=== PATIENT | female | born 1935 | race Caucasian/White ===

== ENCOUNTER 2017-01-10 13:52 | Emergency (ER) | payer OTHER ==
[2017-01-10 14:03] VITALS: BP 193/101; PULSE 92; RESP 18; TEMP 97.5; O2SAT 95
--- NOTE | 2017-01-10 14:53 | EDPHY ---
H & P Stated Complaint: Fall, Shoulder Pain HPI/ROS: HPI CHIEF COMPLAINT: Fall, left shoulder pain, right femur pain HISTORY OF PRESENT ILLNESS: The patient is a very pleasant 81-year-old female, no significant medical history, does not take any daily medications she presents to the emergency room left lateral shoulder pain, right mid femur pain after she rolled out of bed on Saturday. No LOC. Denies headache, neck pain. She also endorses right lateral rib pain. No shortness of breath. No pleuritic pain. Past Medical History: No significant medical history does not take any daily medications Past Surgical History: Denies any recent surgical history remote history of tonsillectomy, Social History: Denies drugs alcohol tobacco products Family History: Noncontributory ROS REVIEW OF SYSTEMS: A comprehensive 10 point review of systems is otherwise negative aside from elements mentioned in the history of present illness. Exam Constitutional triage nursing summary reviewed, vital signs reviewed, awake/ alert. Eyes normal conjunctivae and sclera, EOMI, PERRLA. HENT normal inspection, atraumatic, moist mucus membranes, no epistaxis, neck supple/ no meningismus, no raccoon eyes. Respiratory clear to auscultation bilaterally, normal breath sounds, no respiratory distress, no wheezing. Cardiovascular rate normal, regular rhythm, no murmur, no edema, distal pulses normal. Gastrointestinal soft, non-tender, no rebound, no guarding, normal bowel sounds, no distension, no pulsatile mass. Genitourinary no CVA tenderness. Musculoskeletal tender palpation lateral left shoulder, tender palpation right lateral ribs, tender palpation mid femur no ecchymosis no signs of swelling no obvious signs of deformity or significant trauma, note on her left shoulder full range of motion, diversion lateral aspect, otherwise unremarkable, neurovascular intact distally no midline vertebral tenderness, full range of motion, no calf swelling, no tenderness of extremities, no meningismus, good pulses, neurovascularly intact. Skin pink, warm, & dry, no rash, skin atraumatic. Neurologic awake, alert and oriented x 3, AAOx3, moves all 4 extremities equally, motor intact, sensory intact, CN II-XII intact, normal cerebellar, normal vision, normal speech. Psychiatric normal mood/affect. Heme/Lymph/Immune no lymphadenopathy. Differential Diagnosis: Includes but is not limited to in a particular order multiple contusions, shoulder contusion, shoulder fracture, femur contusion, soft tissue injury, femur fracture, rib fracture, rib contusion Medical Decision Making: plan for this patient she declined pain medicine here in emergency room she would like a chest x-ray two view with rib series, right- sided, right femur, left shoulder Re-evaluation: ED x-ray chest rib series right-sided ribs: possible small lateral fracture. Image interpreted myself. No pneumonia. No pneumothorax. ED x-ray right femur: negative for acute abnormality. Image interpreted myself. ED x-ray left shoulder: negative for acute fracture. Image interpreted myself. Source: Patient - Personal History Current Tetanus Diphtheria and Acellular Pertussis (TDAP): Yes Tetanus Vaccine Date: within 10 years - Medical/Surgical History Hx Asthma: No Hx Chronic Respiratory Disease: No Hx Diabetes: No Hx Cardiac Disease: No Hx Renal Disease: No Hx Cirrhosis: No Hx Alcoholism: No Hx HIV/AIDS: No Hx Splenectomy or Spleen Trauma: No Other PMH: D&C T&A arthritis - Social History Smoking Status: Former smoker Constitutional: Initial Vital Signs Temperature (C) 36.4 C 01/10/17 13:59 Heart Rate 92 01/10/17 13:59 Respiratory Rate 18 01/10/17 13:59 Blood Pressure 193/101 H 01/10/17 13:59 O2 Sat (%) 95 01/10/17 13:59 O2 Delivery Mode Room Air Allergies/Adverse Reactions: No Known Allergies Allergy (Verified 01/27/16 17:38) Home Medications: Medication Instructions Recorded Ciprofloxacin [Cipro] 500 mg PO BID #14 tab 01/27/16 Medical Decision Making - Diagnostics Imaging: Imaging Impressions Femur X-Ray 01/10/17 14:59 Impression: Nothing acute identified. 2. Right Femur, 4 views History: Fall out of bed today, pain Findings: No fracture is identified. Impression: Negative 3. Chest and Right Ribs (3 views ) History: Pain post trauma, fall out of bed today, pain Findings: PA chest - No evidence of pneumothorax, pleural effusion or pulmonary contusion. The mediastinum is not widened. There is a large hiatal hernia behind the enlarged heart. There are possibly acute nondisplaced right lateral fifth and anterolateral sixth rib fractures. There is a prominent thoracic scoliosis concave to the left. There is atherosclerotic calcification of the aortic arch. Right ribs, 2 views- No fracture is identified Impression: 1. Possibly 2 nondisplaced right rib fractures. Shoulder X-Ray 01/10/17 14:59 Impression: Nothing acute identified. 2. Right Femur, 4 views History: Fall out of bed today, pain Findings: No fracture is identified. Impression: Negative 3. Chest and Right Ribs (3 views ) History: Pain post trauma, fall out of bed today, pain Findings: PA chest - No evidence of pneumothorax, pleural effusion or pulmonary contusion. The mediastinum is not widened. There is a large hiatal hernia behind the enlarged heart. There are possibly acute nondisplaced right lateral fifth and anterolateral sixth rib fractures. There is a prominent thoracic scoliosis concave to the left. There is atherosclerotic calcification of the aortic arch. Right ribs, 2 views- No fracture is identified Impression: 1. Possibly 2 nondisplaced right rib fractures. Ribs w/Chest X-Ray 01/10/17 15:07 Impression: Nothing acute identified. 2. Right Femur, 4 views History: Fall out of bed today, pain Findings: No fracture is identified. Impression: Negative 3. Chest and Right Ribs (3 views ) History: Pain post trauma, fall out of bed today, pain Findings: PA chest - No evidence of pneumothorax, pleural effusion or pulmonary contusion. The mediastinum is not widened. There is a large hiatal hernia behind the enlarged heart. There are possibly acute nondisplaced right lateral fifth and anterolateral sixth rib fractures. There is a prominent thoracic scoliosis concave to the left. There is atherosclerotic calcification of the aortic arch. Right ribs, 2 views- No fracture is identified Impression: 1. Possibly 2 nondisplaced right rib fractures. Departure - Departure Disposition: Home, Routine, Self-Care Clinical Impression: Multiple contusions Rib fracture Qualifiers: Encounter type: initial encounter Rib fracture type: multiple ribs Fracture type: closed Laterality: right Qualified Code(s): S22.41XA - Multiple fractures of ribs, right side, initial encounter for closed fracture Condition: Good Instructions: Contusion in Adults (ED), Rib Fracture (ED) Additional Instructions: 1. Return emergency room if you have worsening pain questions or concerns. Referrals: Pramod Serrano MD [Primary Care Provider] - As per Instructions
== END 2017-01-10 16:30 | disposition home or self-care (01) ==
DX: S22.41XA Multiple fractures of ribs, right side, initial encounter for closed fracture (principal); T14.8 Other injury of unspecified body region; Z87.891 Personal history of nicotine dependence; W06.XXXA Fall from bed, initial encounter

== ENCOUNTER 2017-04-22 16:32 | Emergency (ER) | payer OTHER ==
[2017-04-22 16:40] VITALS: BP 118/84; PULSE 104; RESP 18; TEMP 97.5; O2SAT 92
--- NOTE | 2017-04-22 18:48 | EDPHY ---
H & P Stated Complaint: R abd pain, ?blood in urine,no injury, noted this morning Time Seen by Provider: 04/22/17 18:40 HPI/ROS: CHIEF COMPLAINT: Hematuria HISTORY OF PRESENT ILLNESS: The patient is an 81-year-old female who comes to the emergency department complaining of dysuria, hematuria and right inguinal pain. Her symptoms began today. She states that it is similar to urinary tract infection she has had in the past. No fever. No flank pain. No nausea vomiting. REVIEW OF SYSTEMS: Constitutional: denies: chills, fever, recent illness, recent injury EENTM: denies: blurred vision, double vision, nose congestion Respiratory: denies: cough, shortness of breath Cardiac: denies: chest pain, irregular heart rate, lightheadedness, palpitations Gastrointestinal/Abdominal: denies: abdominal pain, diarrhea, nausea, vomiting, blood streaked stools Genitourinary: See HPI Musculoskeletal: denies: joint pain, muscle pain Skin: denies: lesions, rash, jaundice, bruising Neurological: denies: headache, numbness, paresthesia, tingling, dizziness, weakness Hematologic/Lymphatic: denies: blood clots, easy bleeding, easy bruising Immunologic/allergic: denies: HIV/AIDS, transplant EXAM: GENERAL: Well-appearing, well-nourished and in no acute distress. HEAD: Atraumatic, normocephalic. EYES: Pupils equal round and reactive to light, extraocular movements intact, sclera anicteric, conjunctiva are normal. ENT: TMs normal, nares patent, oropharynx clear without exudates. Moist mucous membranes. NECK: Normal range of motion, supple without lymphadenopathy or JVD. LUNGS: Breath sounds clear to auscultation bilaterally and equal. No wheezes rales or rhonchi. HEART: Regular rate and rhythm without murmurs, rubs or gallops. ABDOMEN: Soft, nontender, normoactive bowel sounds. No guarding, no rebound. No masses appreciated. BACK: No CVA tenderness, no spinal tenderness, step-offs or deformities EXTREMITIES: Normal range of motion, no pitting or edema. No clubbing or cyanosis. NEUROLOGICAL: Cranial nerves II through XII grossly intact. Normal speech, normal gait. 5/5 strength, normal movement in all extremities, normal sensation PSYCH: Normal mood, normal affect. SKIN: Warm, dry, normal turgor, no visible rashes or lesions. Source: Patient Exam Limitations: No limitations - Personal History Current Tetanus Diphtheria and Acellular Pertussis (TDAP): Yes Tetanus Vaccine Date: within 10 years - Medical/Surgical History Hx Asthma: No Hx Chronic Respiratory Disease: No Hx Diabetes: No Hx Cardiac Disease: No Hx Renal Disease: No Hx Cirrhosis: No Hx Alcoholism: No Hx HIV/AIDS: No Hx Splenectomy or Spleen Trauma: No Other PMH: D&C T&A arthritis - Family History Significant Family History: No pertinent family hx - Social History Smoking Status: Former smoker Alcohol Use: Sober Drug Use: None Constitutional: Initial Vital Signs Temperature (C) 36.4 C 04/22/17 16:36 Heart Rate 104 H 04/22/17 16:36 Respiratory Rate 18 04/22/17 16:36 Blood Pressure 118/84 H 04/22/17 16:36 O2 Sat (%) 92 04/22/17 16:36 O2 Delivery Mode Room Air Allergies/Adverse Reactions: No Known Allergies Allergy (Verified 04/22/17 16:33) Home Medications: Medication Instructions Recorded Cephalexin [Keflex] 500 mg PO TID #21 cap 04/22/17 Medical Decision Making ED Course/Re-evaluation: 7:20 p.m. the patient's urinalysis is positive. I will start her on Keflex. She declines further workup or testing. She is well appearing. She is afebrile. We discussed indications for returning. Differential Diagnosis: Partial list of the Differential diagnosis considered include but were not limited to; urinary tract infection, kidney stone and although unlikely based on the history and physical exam, I also considered appendicitis, diverticulitis , ovarian cyst, vaginal bleeding, cancer. I discussed these differential diagnoses and the plan with the patient as well as the usual and expected course. The patient understands that the diagnosis is provisional and that in medicine we are not always correct and that further workup is often warranted. Usual and customary warnings were given. All of the patient's questions were answered. The patient was instructed to return to the emergency department should the symptoms at all worsen or return, otherwise to followup with the physician as we discussed. - Data Points Medications Given: Discontinued Medications Cephalexin HCl (Keflex) 500 mg PO EDNOW ONE PRN Reason: Protocol Stop: 04/22/17 19:21 Last Admin: 04/22/17 19:31 Dose: 500 mg Departure - Departure Disposition: Home, Routine, Self-Care Clinical Impression: Urinary tract infection Qualifiers: Urinary tract infection type: acute cystitis Hematuria presence: with hematuria Qualified Code(s): N30.01 - Acute cystitis with hematuria Condition: Fair Instructions: Urinary Tract Infection in Women (ED) Referrals: Pramod Serrano MD [Primary Care Provider] - As per Instructions Prescriptions: Cephalexin [Keflex] 500 mg PO TID #21 cap
[2017-04-22 19:05] LABS: COLOR AMBER; LEUKOCYTE ESTERASE,URINE 3+ (NEGATIVE); NITRITE,URINE NEGATIVE (NEGATIVE)
[2017-04-22 19:16] LABS: BACTERIA 4+ /hpf (NONE SEEN); MUCUS 2+ /lpf (NONE-1+); RBC,URINE 50-182 /hpf (0-3); WBC,URINE 50-182 /hpf (0-3)
[2017-04-22] MEDS ORDERED: CEPHALEXIN 500 MG CAP PO ONE (19:20)
== END 2017-04-22 19:33 | disposition home or self-care (01) ==
DX: N30.01 Acute cystitis with hematuria (principal); B96.89 Other specified bacterial agents as the cause of diseases classified elsewhere; Z87.891 Personal history of nicotine dependence

== ENCOUNTER 2017-07-15 15:23 | Emergency (ER) | payer OTHER ==
[2017-07-15 15:44] VITALS: RESP 16; TEMP 97.9
--- NOTE | 2017-07-15 17:18 | EDPHY ---
H & P Stated Complaint: rt knee stiffness x 1 wk, left bicep pain Time Seen by Provider: 07/15/17 17:00 HPI/ROS: CHIEF COMPLAINT: right knee and left biceps pain HISTORY OF PRESENT ILLNESS: The patient is an 82-year-old female who comes to the emergency department primarily complaining of right knee pain with flexion and inability to flex past 90 degrees. She states that it began feeling stiff about 3 days ago. It does not hurt her to bear weight or walk. Only to bend. No swelling. No trauma. No infection or erythema. No fevers. No history of arthritis. She also complains of left biceps pain that has been present for 3 weeks. She states that it is uncomfortable but has no weakness. It does not hurt her to move her arm or use her bicept but simply headache constant level. She thinks that she may have fallen into a bookcase 3 weeks ago but does not remember if it began hurting before or afterwards. REVIEW OF SYSTEMS: Constitutional: denies: chills, fever, recent illness, recent injury EENTM: denies: blurred vision, double vision, nose congestion Respiratory: denies: cough, shortness of breath Cardiac: denies: chest pain, irregular heart rate, lightheadedness, palpitations Gastrointestinal/Abdominal: denies: abdominal pain, diarrhea, nausea, vomiting, blood streaked stools Genitourinary: denies: dysuria, frequency, hematuria, pain Musculoskeletal: See HPI Skin: denies: lesions, rash, jaundice, bruising Neurological: denies: headache, numbness, paresthesia, tingling, dizziness, weakness Hematologic/Lymphatic: denies: blood clots, easy bleeding, easy bruising Immunologic/allergic: denies: HIV/AIDS, transplant EXAM: GENERAL: Well-appearing, obese and in no acute distress. HEAD: Atraumatic, normocephalic. EYES: Pupils equal round and reactive to light, extraocular movements intact, sclera anicteric, conjunctiva are normal. ENT: TMs normal, nares patent, oropharynx clear without exudates. Moist mucous membranes. NECK: Normal range of motion, supple without lymphadenopathy or JVD. LUNGS: Breath sounds clear to auscultation bilaterally and equal. No wheezes rales or rhonchi. HEART: Regular rate and rhythm without murmurs, rubs or gallops. ABDOMEN: Soft, nontender, normoactive bowel sounds. No guarding, no rebound. No masses appreciated. BACK: No CVA tenderness, no spinal tenderness, step-offs or deformities EXTREMITIES: Right knee pain, no effusion, no erythema, no deformity. Normal range of motion up to 90 degrees of flexion. No abnormality appreciated to left bicep. Normal flexion. Normal strength. No tenderness, no erythema. Normal range of motion of shoulder and elbow. NEUROLOGICAL: Cranial nerves II through XII grossly intact. Normal speech, normal gait. 5/5 strength, normal movement in all extremities, normal sensation PSYCH: Normal mood, normal affect. SKIN: Warm, dry, normal turgor, no visible rashes or lesions. Source: Patient Exam Limitations: No limitations - Personal History Current Tetanus/Diphtheria Vaccine: Unsure Current Tetanus Diphtheria and Acellular Pertussis (TDAP): Unsure Tetanus Vaccine Date: within 10 years - Medical/Surgical History Hx Asthma: No Hx Chronic Respiratory Disease: No Hx Diabetes: No Hx Cardiac Disease: No Hx Renal Disease: No Hx Cirrhosis: No Hx Alcoholism: No Hx HIV/AIDS: No Hx Splenectomy or Spleen Trauma: No Other PMH: D&C T&A arthritis - Family History Significant Family History: No pertinent family hx - Social History Smoking Status: Former smoker Alcohol Use: Sober Drug Use: None Constitutional: Initial Vital Signs Temperature (C) 36.6 C 07/15/17 15:41 Heart Rate 87 07/15/17 15:41 Respiratory Rate 16 07/15/17 15:41 Blood Pressure 134/81 H 07/15/17 15:41 O2 Sat (%) 90 L 07/15/17 15:41 O2 Delivery Mode Room Air Allergies/Adverse Reactions: No Known Allergies Allergy (Verified 07/15/17 15:40) Home Medications: Medication Instructions Recorded NK [No Known Home Meds] 07/15/17 Medical Decision Making - Diagnostics EKG Interpretation: An EKG obtained and was read and documented in trace view. Please see trace view for full reading and report. Sinus rhythm, T-wave inversions laterally other new compared to previous, LVH with repolarization Imaging Results: Imaging Impressions Humerus X-Ray 07/15/17 17:11 Impression: Left humerus negative for fracture. Knee X-Ray 07/15/17 17:11 Impression: Negative for fracture. Chest X-Ray 07/15/17 17:45 Impression: 1. Suspect low-grade congestive heart failure. 2. Basilar atelectasis. 3. See above report for additional findings. Procedures: Arthrocentesis: Right knee prepped and draped in sterile fashion, 3 cc bupivacaine used for local anesthesia. 1 cc of fluid obtained from the joint. Clear. Small amount of blood at the end. Patient tolerated well. We will send to lab for cultures and possible cell count and differential. ED Course/Re-evaluation: We discussed the patient's EKG which is concerning because it is different from 2015. I have no other explanation for her left biceps region pain. Does not seem to hurt with movement or usage. I will attempt to aspirate her knee. 7:55 p.m. I had a long discussion with the patient about her test results. Her age adjusted D-dimer is negative. Her troponin is negative after 2 weeks worth of arm pain. She denies chest pain or shortness of breath. Her x-ray shows slightly enlarged heart. She is not hypoxic in her lung sounds are clear. She does have new T-wave inversions compared to 2015. I do not know if those are new or maybe happened a year to ago. I recommended strongly admission to the hospital for further cardiac rule out. The patient refuses this and is eager to go home. She has a primary doctor that she will follow up within the next day or 2 to schedule a stress test. I will also refer her to Cardiology. We discussed indications for returning. Differential Diagnosis: Partial list of the Differential diagnosis considered include but were not limited to; the muscle strain, effusion, arthritis, meniscus injury and although unlikely based on the history and physical exam, I also considered gout , septic joint, fracture, dislocation, acute coronary disease, PE, pneumonia, CHF. I discussed these differential diagnoses and the plan with the patient as well as the usual and expected course. The patient understands that the diagnosis is provisional and that in medicine we are not always correct and that further workup is often warranted. Usual and customary warnings were given. All of the patient's questions were answered. The patient was instructed to return to the emergency department should the symptoms at all worsen or return, otherwise to followup with the physician as we discussed. - Data Points Laboratory Results: Laboratory Results 07/15/17 18:10 10/16/17 18:10 07/15/17 07/15/17 07/15/17 18:10 18:10 18:10 WBC 7.61 10^3/uL 10^3/uL (3.80-9.50) RBC 4.54 10^6/uL 10^6/uL (4.18-5.33) Hgb 13.1 g/dL g/dL (12.6-16.3) Hct 40.5 % % (38.0-47.0) MCV 89.2 fL fL (81.5-99.8) MCH 28.9 pg pg (27.9-34.1) MCHC 32.3 g/dL L g/dL (32.4-36.7) RDW 14.7 % % (11.5-15.2) Plt Count 206 10^3/uL 10^3/uL (150-400) MPV 10.4 fL fL (8.7-11.7) Neut % (Auto) 61.9 % % (39.3-74.2) Lymph % (Auto) 25.4 % % (15.0-45.0) [place] % (Auto) 9.5 % % (4.5-13.0) Eos % (Auto) 2.2 % % (0.6-7.6) Baso % (Auto) 0.5 % % (0.3-1.7) Nucleat RBC Rel Count 0.0 % % (0.0-0.2) Absolute Neuts (auto) 4.71 10^3/uL 10^3/uL (1.70-6.50) Absolute Lymphs (auto) 1.93 10^3/uL 10^3/uL (1.00-3.00) Absolute Monos (auto) 0.72 10^3/uL 10^3/uL (0.30-0.80) Absolute Eos (auto) 0.17 10^3/uL 10^3/uL (0.03-0.40) Absolute Basos (auto) 0.04 10^3/uL 10^3/uL (0.02-0.10) Absolute Nucleated RBC 0.00 10^3/uL 10^3/uL (0-0.01) Immature Gran % 0.5 % % (0.0-1.1) Immature Gran # 0.04 10^3/uL 10^3/uL (0.00-0.10) PT 13.4 SEC SEC (12.0-15.0) INR 1.03 (0.83-1.16) APTT 33.2 SEC SEC (23.0-38.0) D-Dimer 0.59 ug/mLFEU H ug/mLFEU (0.00-0.50) Sodium 138 mEq/L mEq/L (134-144) Potassium 4.7 mEq/L mEq/L (3.5-5.2) Chloride 101 mEq/L mEq/L (97-110) Carbon Dioxide 28 mEq/l mEq/l (22-31) Anion Gap 9 mEq/L mEq/L (8-16) BUN 21 mg/dL mg/dL (7-23) Creatinine 1.0 mg/dL mg/dL (0.6-1.0) Estimated GFR 53 Glucose 107 mg/dL H mg/dL (70-100) Calcium 9.8 mg/dL mg/dL (8.5-10.4) Troponin I 0.033 ng/mL ng/mL (0.000-0.034) Synovial Source Synovial Color Synovial Appearance Synovial WBC Synovial RBC Synovial Crystals Synovial Glucose Synovial LDH 07/15/17 18:00 WBC RBC Hgb Hct MCV MCH MCHC RDW Plt Count MPV Neut % (Auto) Lymph % (Auto) [place] % (Auto) Eos % (Auto) Baso % (Auto) Nucleat RBC Rel Count Absolute Neuts (auto) Absolute Lymphs (auto) Absolute Monos (auto) Absolute Eos (auto) Absolute Basos (auto) Absolute Nucleated RBC Immature Gran % Immature Gran # PT INR APTT D-Dimer Sodium Potassium Chloride Carbon Dioxide Anion Gap BUN Creatinine Estimated GFR Glucose Calcium Troponin I Synovial Source SYNOVIAL Synovial Color RED (CLS/PALE YL) Synovial Appearance CLOUDY H (CLEAR) Synovial WBC TNP Synovial RBC TNP Synovial Crystals Pending Synovial Glucose TNP Synovial LDH TNP Microbiology Results: MICROBIOLOGY 07/15/17 18:00 Knee - Aspirate Gram Stain - Final Medications Given: Discontinued Medications Aspirin (Aspirin) 324 mg PO EDNOW ONE Stop: 07/15/17 17:46 Last Admin: 07/15/17 17:56 Dose: 324 mg Departure - Departure Disposition: Home, Routine, Self-Care Clinical Impression: Arm pain, left Right knee pain Qualifiers: Chronicity: acute Qualified Code(s): M25.561 - Pain in right knee Condition: Fair Instructions: Knee Pain (ED), Arm Pain (ED) Additional Instructions: Follow-up with your primary our deckhand engineer in the next 72 hours for stress testing. I will also refer you to orthopedist for your biceps and right knee pain. Referrals: Siri Arce MD [Medical Doctor] - As per Instructions Pramod Serrano MD [Primary Care Provider] - As per Instructions Kathy Alvarez MD [Medical Doctor] - As per Instructions
--- NOTE | 2017-07-15 17:37 | CPEKG ---
Heart Rate: 73 RR Interval: 822 P-R Interval: 168 QRSD Interval: 92 QT Interval: 408 QTC Interval: 450 P [place]: 38 QRS [place]: 38 T Wave [place]: 153 EKG Severity - ABNORMAL ECG - EKG Impression: SINUS RHYTHM EKG Impression: CONSIDER LEFT VENTRICULAR HYPERTROPHY EKG Impression: ABNORMAL T, CONSIDER ISCHEMIA, LATERAL LEADS EKG Impression: ANTERIOR ST ELEVATION, PROBABLY DUE TO LVH Electronically Signed By: Robin Romeo 15-Jul-2017 17:39:47
[2017-07-15] MEDS ORDERED: ASPIRIN 81 MG CHEWABLE TAB PO ONE (17:45)
[2017-07-15 18:28] LABS: % IMMATURE GRANULYOCYTES 0.5 % (0.0-1.1); ABSOLUTE IMMATURE GRANULOCYTES 0.04 10^3/uL (0.00-0.10); ADD DIFF? NO; ADD MORPH? NO; ADD SCAN? NO; ATYPICAL LYMPHOCYTE FLAG 0 (0-99); FRAGMENT RBC FLAG 0 (0-99); HEMATOCRIT 40.5 % (38.0-47.0); HEMOGLOBIN 13.1 g/dL (12.6-16.3); LEFT SHIFT FLG 0 (0-99); LIPEMIA HEMOLYSIS FLAG 80 (0-99); MEAN CELL HEMOGLOBIN 28.9 pg (27.9-34.1); MEAN CELL HEMOGLOBIN CONCENTR. 32.3 g/dL (32.4-36.7); MEAN CELL VOLUME 89.2 fL (81.5-99.8); MEAN PLATELET VOLUME 10.4 fL (8.7-11.7); PLATELET CLUMPS FLAG 0 (0-99); PLATELET COUNT 206 10^3/uL (150-400); RED BLOOD CELL COUNT 4.54 10^6/uL (4.18-5.33); RED CELL DISTRIBUTION WIDTH 14.7 % (11.5-15.2)
[2017-07-15 18:35] LABS: ANION GAP 9 mEq/L (8-16); CALCIUM 9.8 mg/dL (8.5-10.4); CARBON DIOXIDE 28 mEq/l (22-31); CHLORIDE 101 mEq/L (97-110); GLOMERULAR FILTRATION RATE 53; GLUCOSE 107 mg/dL (70-100); POTASSIUM 4.7 mEq/L (3.5-5.2); SODIUM 138 mEq/L (134-144)
[2017-07-15 18:46] LABS: CRYSTALS, SYNOVIAL FLUID NONE SEEN (NONE SEEN)
[2017-07-15 18:47] LABS: TROPONIN I 0.033 ng/mL (0.000-0.034)
[2017-07-15 19:03] LABS: INR 1.03 (0.83-1.16); PROTIME(PATIENT) 13.4 SEC (12.0-15.0)
[2017-07-15 19:04] LABS: APTT 33.2 SEC (23.0-38.0)
[2017-07-15 19:34] VITALS: BP 138/83; PULSE 73; O2SAT 95
== END 2017-07-15 20:15 | disposition home or self-care (01) ==
PROC: 0S9C3ZZ Drainage of Right Knee Joint, Percutaneous Approach (ICD-10-PCS; principal; 2017-07-15)
DX: M79.622 Pain in left upper arm (principal); M25.561 Pain in right knee; Z87.891 Personal history of nicotine dependence

== ENCOUNTER → 2017-07-23 | Outpatient (CLI) | payer OTHER | LOC: FIMAGING 15:09 | PROVIDERS: ATTEND Physician Assistant | DX: Z13.820 Encounter for screening for osteoporosis (principal); M85.89 Other specified disorders of bone density and structure, multiple sites ==

== ENCOUNTER 2017-11-18 06:09 | Day surgery (SDC) | payer OTHER ==
[2017-11-18] MEDS ORDERED: ASPIRIN EC 325 MG TAB PO ONE ×2 (06:16→06:42)
[2017-11-18] MEDS ORDERED: FAMOTIDINE 20 MG TAB PO ONE (06:16)
[2017-11-18] MEDS ORDERED: DIAZEPAM 5 MG TAB PO ONE (06:16)
[2017-11-18] MEDS ORDERED: NS 1,000 ML IV ONE (06:16)
[2017-11-18] MEDS ORDERED: diphenhydrAMINE 25 MG CAP PO ONE ×2 (06:16→06:42)
--- NOTE | 2017-11-18 06:39 | CPEKG ---
Heart Rate: 97 RR Interval: 619 P-R Interval: 152 QRSD Interval: 92 QT Interval: 396 QTC Interval: 503 P [place]: 46 QRS [place]: 30 T Wave [place]: 123 EKG Severity - ABNORMAL ECG - EKG Impression: SINUS RHYTHM EKG Impression: LEFT VENTRICULAR HYPERTROPHY EKG Impression: BORDERLINE PROLONGED QT INTERVAL Electronically Signed By: London Sierra 18-Nov-2017 06:58:05
[2017-11-18] MEDS ORDERED: FAMOTIDINE 20 MG TAB ONE (06:42)
[2017-11-18] MEDS ORDERED: DIAZEPAM 5 MG TAB ONE (06:43)
[2017-11-18 06:55] LABS: PLATELET COUNT 208 10^3/uL (150-400)
--- NOTE | 2017-11-18 06:59 | PDHPUP ---
History & Physical Update H&P update statement: This history and physical update is based on an assessment of the patient which was completed after admission or registration (within 24 hours), but prior to the surgery/procedure. H&P update: H&P reviewed & patient examined, no change in patient's condition since H&P completed
--- NOTE | 2017-11-18 07:00 | PDPROPOC ---
Sedation Plan of Care Sedation Plan of Care: mental status noted, patient educated of risks, benefits , alternatives, patient can tolerate sedation ASA Classification: ASA 2 Planned drugs: fentanyl, midazolam Mallampati Score: Class 2 Mallampati Reference Image: Patient passed 3-3-2 rule?: Yes
[2017-11-18 07:03] LABS: INR 1.05 (0.83-1.16); PROTIME(PATIENT) 13.9 SEC (12.0-15.0)
[2017-11-18] MEDS ORDERED: LIDOCAINE 1% 300 MG/30 ML SDV ONE (07:05)
[2017-11-18] MEDS ORDERED: fentaNYL 100 MCG/2 ML INJ ONE (07:06)
[2017-11-18] MEDS ORDERED: IOPAMIDOL (ISOVUE-370) 150 ML BTL IV ONE (07:06)
[2017-11-18] MEDS ORDERED: MIDAZOLAM 2 MG/2 ML VIAL ONE (07:06)
[2017-11-18] MEDS ORDERED: NITROGLYCERIN 0.4 MG BTL SL PRN (08:07)
[2017-11-18] MEDS ORDERED: ONDANSETRON 4 MG/2 ML VIAL IVP PRN (08:07)
[2017-11-18] MEDS ORDERED: HYDROCODONE/APAP 5/325 TAB PO PRN (08:07)
[2017-11-18] MEDS ORDERED: ATROPINE SULFATE 1 MG/10 ML SYR IVP PRN (08:07)
[2017-11-18] MEDS ORDERED: OXYCODONE/APAP 5/325 TAB PO PRN (08:07)
--- NOTE | 2017-11-18 11:01 | CPIP ---
[f rep st] INVASIVE CARDIAC PROCEDURE DATE OF PROCEDURE: 11/18/2017 INDICATION FOR PROCEDURE: Severe aortic stenosis. PROCEDURE: 1. Nonselective left groin sheathogram. 2. 7-Syrian sheath to left common femoral vein. 3. Right heart catheterization with Brook[place]-Ronan catheter. 4. Bilateral selective coronary angiography. 5. Abdominal aortogram. HISTORY: Briefly, this is an 82-year-old female with history of critical aortic stenosis, worsening symptoms of dyspnea on exertion. The patient had been deemed to be a suitable candidate for TAVR by Dr. Tae Gongora from CT surgery. The patient was consented for right and left heart catheterization in anticipation for interventional TAVR. After informed consent was obtained, the patient was brought to [facility] where the left groin was prepped and draped in sterile fashion. Using lidocaine, a short 6 -Syrian sheath used in the left common femoral artery and a 7-Syrian sheath in the left common femoral vein. The 6-Syrian sheath was up sized to a 45 cm sheath secondary to excessive tortuosity in the abdominal thoracic aorta. At this time, a right heart catheter was advanced. A Brook[place]-Ronan catheter was advanced and wedge pressure was measured to be a mean of 22, A-wave 25/25, a PA pressure was systolic 55/31 with a mean of 40. RV pressure 56/9 with the end of 19. RA pressure of 16 with an A-wave of 15 and V-wave 28. Cardiac output was measured out to be 3.6 by Kevan and a cardiac index of 1.9. AO sat was 94%. PA sat was 63%. At this time, the [place]-Ronan catheter was removed. A JL4 catheter was advanced to the left coronary artery. Images of the left coronary artery showed 30% prox left main disease with good reflux out of the left main with no damping of pressure. Left circumflex turned into a large marginal 1 artery with a 2nd small marginal artery and AV groove marginal artery. There was mild 20% disease in the proximal left circumflex. The LAD was a long vessel which gave off a very large diagonal artery proximally, which was healthy and free of disease. The LAD at the level of the 1st septal sports teacher had approximately 40 % disease. Distally, the LAD had 20% to 30% giving off 2 smaller diagonal arteries, which had mild plaque disease proximally. After images obtained, the JL4 catheter was removed. The JR4 catheter was advanced to the right coronary artery. Images of the right coronary artery revealed normal os, prox RCA. There was mild 20% disease in the mid RCA. Distally, the RPD and RPLS appeared to be healthy and free of disease. After images obtained, the JR4 catheter was removed. A pigtail catheter was then advanced to the descending aorta and abdominal aortogram was obtained which showed aneurysm of the distal infrarenal abdominal aorta, patent bilateral common external and internal iliac arteries with widely patent CFAs. After images obtained, the catheter was removed, then manual pressure was held on the left groin. Patient tolerated procedure well with no complications. IMPRESSION: 1. 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 2. Mild plaque disease in the right coronary artery. 3. Moderate pulmonary hypertension. 4. Aneurysmal disease of the infrarenal abdominal aorta with widely patent aortoiliac femoral conduits. PLAN: The patient will have a CT of the chest, abdomen, and pelvis, as well as carotid ultrasound today. We will discharge the patient home today. If testing appears that the patient is appropriate candidate for TAVR we will move forward in the next 3-4 weeks. /[id number]/MODL MTDD
[2017-11-18] MEDS ORDERED: IOPAMIDOL (ISOVUE 370) 100 ML BTL IV ONE (11:43)
== END 2017-11-18 14:25 | disposition home or self-care (01) ==
LOC: FCATH 06:09
PROVIDERS: ATTEND Internal Medicine Cardiovascular Disease
DX: I35.2 Nonrheumatic aortic (valve) stenosis with insufficiency (principal); I51.7 Cardiomegaly; E11.9 Type 2 diabetes mellitus without complications; E78.5 Hyperlipidemia, unspecified; I25.10 Atherosclerotic heart disease of native coronary artery without angina pectoris; I27.20 Pulmonary hypertension, unspecified; I71.4 Abdominal aortic aneurysm, without rupture; K44.9 Diaphragmatic hernia without obstruction or gangrene; K57.90 Diverticulosis of intestine, part unspecified, without perforation or abscess without bleeding; Z01.810 Encounter for preprocedural cardiovascular examination
CPT/HCPCS: J1644; J2250; J3010; Q9967

== ENCOUNTER 2017-12-02 06:06 | Inpatient (IN) | payer OTHER ==
[2017-11-29 11:18] LABS: PLATELET COUNT 227 10^3/uL (150-400)
[2017-12-02] MEDS ORDERED: LIDOCAINE 2% 100 MG/5 ML SYR ONE (06:32)
[2017-12-02] MEDS ORDERED: niCARdipine/NACL/200 ML BAG IV ONE (06:32)
[2017-12-02] MEDS ORDERED: MILRINONE/DEXTROSE/100 ML BAG IV ONE (06:32)
[2017-12-02] MEDS ORDERED: ALBUMIN 5% 250 ML BOTTLE IV ONE (06:32)
[2017-12-02] MEDS ORDERED: AMIODARONE HCL 150 MG/3 ML VIAL ONE (06:32)
[2017-12-02] MEDS ORDERED: ADENOSINE 6 MG/2 ML VIAL ONE (06:32)
[2017-12-02] MEDS ORDERED: HEPARIN 10,000 UNIT/10 ML MDV (1,000 UNIT/ML) ONE ×3 (06:32→13:53)
[2017-12-02] MEDS ORDERED: PROTAMINE SULFATE 50 MG/5 ML VIAL IVP ONE ×2 (06:32→08:50)
[2017-12-02] MEDS ORDERED: NA BICARBONATE 50 MEQ/50 ML VIAL ONE (06:32)
[2017-12-02] MEDS ORDERED: CITRATE DEXTROSE SOLN 500 ML BAG ONE (06:32)
[2017-12-02] MEDS ORDERED: MAGNESIUM SULFATE 1 GM/2 ML VIAL ONE (06:32)
[2017-12-02] MEDS ORDERED: DOPamine/DEXTROSE/250 ML BAG IV ONE (06:32)
[2017-12-02] MEDS ORDERED: CALCIUM CHLORIDE 1 GM/10 ML INJ ONE (06:32)
[2017-12-02] MEDS ORDERED: ceFAZolin 1 GM VIAL ONE (06:33)
[2017-12-02] MEDS ORDERED: methylPREDNISolone SOD SUCC 1 GM/8 ML VIAL ONE (06:33)
[2017-12-02] MEDS ORDERED: IOPAMIDOL (ISOVUE-370) 150 ML BTL IV ONE (06:42)
--- NOTE | 2017-12-02 06:45 | PDPROPOC ---
Sedation Plan of Care Sedation Plan of Care: mental status noted, patient educated of risks, benefits , alternatives, patient can tolerate sedation ASA Classification: ASA 2 Planned drugs: other Mallampati Score: Class 2 Mallampati Reference Image: Patient passed 3-3-2 rule?: Yes
[2017-12-02] MEDS ORDERED: ceFAZolin 2 GM/SWFI 2 GM/20 ML SYR IVP ONE (07:00)
--- NOTE | 2017-12-02 07:05 | PDANEPAE ---
ANE History of Present Illness 82 yo for TAVR ANE Past Medical History - Cardiovascular History Hx Coronary Artery / Peripheral Vascular Disease: Yes Hx CHF / Valvular Disease: Yes - Pulmonary History Hx Oxygen in Use at Home: No Hx Sleep Apnea: No - Endocrine History Hx Diabetes: No ANE Review of Systems Review of Systems: - Exercise capacity METS (RN): 3 METS ANE Patient History - Allergies Allergies/Adverse Reactions: No Known Allergies Allergy (Verified 07/15/17 15:40) - Home Medications Home medications: home medication list seen and reviewed Home Medications: Cholecalciferol Vit D3 [Vitamin D3 2000 units tab (OTC)] 2,000 units PO DAILY [Last Taken Unknown] - NPO status NPO Status: no food or drink >8 hours - Anes Hx Anes Hx: no prior problems - Smoking Hx Smoking Status: Former smoker ANE Labs/Vital Signs - Labs Result Diagrams: 11/29/17 10:55 11/29/17 10:55 - Vital Signs Height: 5 ft 2.99 in Weight: 88.5 kg ANE Physical Exam - Airway Neck exam: FROM Mallampati Score: Class 2 Mouth exam: poor dentition - Pulmonary Pulmonary: no respiratory distress - Cardiovascular Cardiovascular: regular rate and rhythym - ASA Status ASA Status: III ANE Anesthesia Plan Anesthesia Plan: general endotracheal anesthesia
[2017-12-02] MEDS ORDERED: REMIFENTANIL HCL 1 MG VIAL ONE (07:14)
[2017-12-02] MEDS ORDERED: fentaNYL 100 MCG/2 ML INJ ONE (07:14)
[2017-12-02] MEDS ORDERED: PHENYLEPHRINE HCL 100 MCG/ML SYR ONE (07:15)
[2017-12-02] MEDS ORDERED: PROPOFOL/EMULSION 500 MG/50 ML BOTTLE IV ONE (07:15)
[2017-12-02] MEDS ORDERED: ROCURONIUM 100 MG/10 ML VIAL ONE (07:19)
[2017-12-02] MEDS ORDERED: HYDROmorphONE/DILAUDID 1 MG/ML INJ IVP PRN (09:03)
[2017-12-02] MEDS ORDERED: ATROPINE SULFATE 1 MG/10 ML SYR IVP PRN (09:03)
[2017-12-02] MEDS ORDERED: ONDANSETRON DISINTEGRATING 4 MG TAB PO PRN (09:03)
[2017-12-02] MEDS ORDERED: hydrALAZINE 20 MG/ML VIAL IVP PRN (09:03)
[2017-12-02] MEDS ORDERED: ONDANSETRON 4 MG/2 ML VIAL IVP PRN (09:03)
[2017-12-02] MEDS ORDERED: IBUPROFEN 800 MG TAB PO PRN (09:03)
[2017-12-02] MEDS ORDERED: oxyCODONE IR 5 MG TAB PO PRN (09:03)
[2017-12-02] MEDS ORDERED: IBUPROFEN 200 MG TAB PO PRN (09:38)
--- NOTE | 2017-12-02 10:28 | POSTANESTH ---
Post Anesthetic Evaluation Cardiovascular Status: Normal, Stable Respiratory Status: Similar to Pre-op Cond. Level of Consciousness/Mental Status: Can Participate in Eval Pain Control: Adequate, Prn Tx Ordered Nausea/Vomiting Control: Adequate, Prn Tx Ordered Complications Possibly Related to Anesthesia: None Noted
--- NOTE | 2017-12-02 11:24 | CPIP ---
[f rep st] INVASIVE CARDIAC PROCEDURE DATE OF PROCEDURE: 12/02/2017 INDICATION FOR PROCEDURE: Critical aortic stenosis. CO-SURGEONS: Dr. Tae Gongora and Dr. Siri Arce. PROCEDURE: 1. Nonselective left groin sheathogram. 2. Nonselective right groin sheathogram. 3. 6-Vietnamese sheath placed in right common femoral vein with temporary pacemaker placed in right vent ricle. 4. Balloon aortic valvoplasty. 5. Placement of Medtronic CoreValve Evolut PRO 29 mm valve via the transfemoral route. BRIEF HISTORY: This is an 82-year-old female with history of critical aortic stenosis with worsening symptoms. Patient had seen Dr. Gongora and . as an outpatient and was deemed to be a aly table candidate for transfemoral TAVR . DESCRIPTION OF PROCEDURE: The patient was brought to [facility] where the patient was electively intubated. OUMAR performed by Dr. Siri Arce. Patient administered 1 g of Ancef prior to t he case. Patient had a 6-Vietnamese sheath placed in right common femoral artery and verified angiographically, up sized to an 8-Vietnamese sheath. A 6-Vietnamese sheath placed in right common femoral vein. A 6-Vietnamese muñiz th placed in left common femoral artery and verified angiographically. It was upsized to a 16-Vietnamese sheath after triple Perclose placement. The patient was administered a total of 8000 heparin. Valv e was crossed with AL1 catheter and a straight stiff Glidewire was switched out for a pigtail cathete r, switched out for a Confida wire. Balloon aortic valvoplasty commenced with a 23 balloon. The pat ient was paced at 180 beats per minute. This balloon was removed, and we then proceeded with placeme nt of a Medtronic CoreValve Evolut PRO 29 mm valve. This deployed successfully. There was moderate perivalvular leak noted after deployment. This was then post dilated with a 25 mm Z-MED balloon. Th is was performed at a pacing rate of 180 beats per minute. After this was performed, there was mild perivalvular leak noted. The balloon was removed. The wire was removed. The left groin was closed with triple Perclose placement as well as an 8-Vietnamese Angio-Seal. The right groin was closed with an 8-Vietnamese Angio-Seal. Right common femoral vein was closed with manual pressure. Patient tolerated procedure well with no compressions. IMPRESSION: Successful placement of Medtronic CoreValve Evolut PRO 29 mm valve via transfemoral rout e. PLAN: The patient will be admitted to ICU. Further orders following clinical correlation. /[id number]/MODL
[2017-12-02] MEDS: CIPROFLOXACIN 250 MG TAB PO SCH ×2 (11:39→20:34)
--- NOTE | 2017-12-02 13:01 | PDMN ---
Medical Necessity Medical necessity: Patient meets inpatient criteria per physician note and [facility] [place] [facility] -1320 Aortic Valve Replacement, Transcatheter - 3 days postop - ( TAVR for critical aortic stenosis; Medicare inpatient-only surgery.)
[2017-12-02] MEDS ORDERED: AMIODARONE A.FIB-6HR INFSN (ORDER 2/3) PREMIX IV ONE (13:30)
[2017-12-02] MEDS ORDERED: AMIODARONE A.FIB-LOAD DOSE(ORDER 1/3) PREMIX IV ONE (13:30)
[2017-12-02] MEDS: ACETAMINOPHEN 325 MG TAB PO SCH ×2 (13:45→18:23)
--- NOTE | 2017-12-02 14:50 | GOP ---
[f rep st] OPERATIVE REPORT DATE OF OPERATION: 12/02/2017 SURGEON: Tae Gongora DO PREOPERATIVE DIAGNOSIS: Critical aortic stenosis. POSTOPERATIVE DIAGNOSIS: Critical aortic stenosis. PROCEDURE PERFORMED: Left common femoral artery transcatheter aortic valve replacement with a 29 mm Evolut Pro valve with pre and post dilation. FINDINGS: DESCRIPTION OF PROCEDURE: Please see separate dictation by Dr. Arce and Dr. Sierra. After access a cross the valve, balloon dilation and subsequent placement of the valve across the aortic anulus, I tony yang deployed the valve under fluoroscopic and echo guidance with excellent coaptation and no impingem ent on the mitral leaflet. The patient post dilation had mild perivalvular leak. I then retracted t he deployment device back into the descending thoracic aorta and followed with post-dilation after re moving it and replacing it with a 16-Faroese [place] sheath. Remainder of wire placement and vessel clos ure was performed by Dr. Sierra. Please see separate dictations. SURGEONS: MD Tae Monk DO Molly G. Ware, MD /[id number]/MODL
[2017-12-02] MEDS ORDERED: AMIODARONE A.FIB-18HR INFSN (ORDER 3/3) IV ONE (20:00)
[2017-12-03] MEDS: ACETAMINOPHEN 325 MG TAB PO SCH ×4 (00:45→18:07)
[2017-12-03 04:54] LABS: PLATELET COUNT 161 10^3/uL (150-400)
[2017-12-03 05:04] LABS: INR 1.1 (0.83-1.16); PROTIME(PATIENT) 14.4 SEC (12.0-15.0)
--- NOTE | 2017-12-03 06:53 | PDCARPN ---
Cardiology Progress Note Chief Complaint: SOB Assessment/Plan: Assessment: s/p TAVR brief run of AF post-op Plan: 12/03/17 06:52 Doing great NSR BP stable Check echo Ambulate OK to transfer Hgb dropped, but pt stable Re-check labs in AM Subjective: doing great Reviewed/Discussed With: multidisciplinary team Time Spent With Patient: 25 min Objective: Vital Signs (8 Hrs) Pulse Resp BP Pulse Ox 12/03/17 06:00 74 16 124/57 H 95 12/03/17 04:00 78 14 113/44 L 97 12/03/17 02:00 73 17 108/43 L 98 12/03/17 00:00 75 13 107/46 L 95 Intake/Output (24 Hrs) 12/02/17 12/03/17 12/04/17 05:59 05:59 05:59 Intake Total 1380 Output Total 400 Balance 980 Intake: Oral (ml) 1280 IV Infused (ml) 100 Amiodarone HCl 100 ml @ 100 600 mls/hr IV ONCE ONE Rx #:[id number] Output: Urine (ml) 400 Catheter 400 Other: Weight 88.5 kg Output Comment Bedpan catheter placed Number of Voids Bedpan 1 Toilet 2 Bladder Scan Volume (ml) Bedpan 560 Post Void Residual Scan Volume (ml) Catheter 30 Result Diagrams: 12/03/17 04:40 12/03/17 04:40 - Physical Exam Constitutional: healthy appearing Ears, Nose, Mouth, Throat: moist mucous membranes Cardiovascular: regular rate and rhythm Peripheral Pulses: 1+: femoral (R), femoral (L) Respiratory: clear to auscultate bilat Gastrointestinal: normoactive bowel sounds Genitourinary: no suprapubic tenderness Skin: no rashes Psychiatric: cooperative ICD10 Worksheet Patient Problems: Problems Problem Status Onset Herpes zoster Acute Urinary tract infection Acute
--- NOTE | 2017-12-03 08:49 | CPEKG ---
Heart Rate: 79 RR Interval: 759 P-R Interval: 148 QRSD Interval: 100 QT Interval: 396 QTC Interval: 455 P [place]: 51 QRS [place]: 44 T Wave [place]: 211 EKG Severity - ABNORMAL ECG - EKG Impression: SINUS RHYTHM EKG Impression: ATRIAL PREMATURE COMPLEX EKG Impression: PROBABLE LVH WITH SECONDARY REPOL ABNRM EKG Impression: ANTERIOR ST ELEVATION, PROBABLY DUE TO LVH Electronically Signed By: Errol Kern 04-Dec-2017 12:14:44
[2017-12-03] MEDS: CIPROFLOXACIN 250 MG TAB PO SCH ×2 (09:51→20:28)
[2017-12-03] MEDS: CLOPIDOGREL BISULFATE 75 MG TAB PO SCH (09:51)
--- NOTE | 2017-12-03 10:19 | ECHO ---
[email or web address] [address] [address] Main: [phone] Fax: Transesophageal Echocardiography Name: ESTIVEN CHOWDHURY MR#: [id number] Study Date: 12/02/2017 Study Time: 07:51 AM Date of : 1935 Age: 82 year(s) Height: ( ) Weight: ( ) BSA: Gender: Female Examination: OUMAR Indication: TAVR Image Quality: Contrast: Requested by: London Sierra Heart Rate: Rhythm: BP: / Procedure Staff Crew Boss: Viktor Rice RDCS Reading Physician: Siri Arce MD Requesting Provider: London Sierra Measurements: Chambers Valvular Assessment AV/MV Valvular Assessment TV/PV Normal Normal Normal Name Value Range Name Value Range Name Value Range LVOTd 1.9 cm 1.9 cm mm AV Vmax: 4.15 m/s (1 m/s-1.7 m/s) AV maxP mmHg ( - ) AV meanP mmHg ( - ) JOHN (VTI): 2.8 cm ( - ) AR (PHT): 542 ms ( - ) Additional Measurements: Valvular Assessment AV/MV Name Value AR Vmax: 2.21 cm/s Findings: Exam Comments: Baseline-EF 45-50% / No pericardial effusion, Moderate MR, Post Balloon EF normal/mild to moderate AI, 2/3 deployed- EF normal, MV moderate MR, Moderate multiple AI jets noted. Successful TAVR deployment with AV mean PG of 4 mmHg and JOHN of 2.9 m/s, Mild AI, EF appeared to improve to 50-55%. l1n Patient: ESTIVEN CHOWDHURY Study Date: 12/02/2017 Page 1 of 2 07:51 AM (No Signature Object) Patient: ESTIVEN CHOWDHURY Study Date: 12/02/2017 Page 2 of 2 07:51 AM [id number]
--- NOTE | 2017-12-03 12:52 | ECHO ---
[email or web address] [address] [address] Main: [phone] Fax: Transthoracic Echocardiogram Name: ESTIVEN CHOWDHURY MR#: [id number] Study Date: 12/03/2017 Study Time: 10:12 AM Date of : 1935 Age: 82 year(s) Height: 160 cm (63 in.) Weight: 88.45 kg (195 lb.) BSA: 1.91 m2 Gender: Female Examination: Echo Indication: Post TAVR Image Quality: Contrast: Requested by: London Sierra BP: 104 mmHg/43 mmHg Heart Rate: Rhythm: Indication: Post TAVR Procedure Staff County Sheriff: Viri Kearns RDCS Reading Physician: London Sierra MD Requesting Provider: Conclusions: Mild concentric LV hypertrophy. Normal global systolic LV function. The ejection fraction is estimated to be 60-65 %. Moderate mitral annular calcification. Mild mitral valve regurgitation is present. Cor valve in place. Mild perivalvular leak visualized. AV max PG is 15mmHG. AV mean PG is 9mmHG.. Measurements: Chambers Valvular Assessment AV/MV Valvular Assessment TV/PV Normal Normal Normal Name Value Range Name Value Range Name Value Range IVSd (2D): 1.2 cm (0.6 cm-1.1 AV meanP mmHg ( - ) TR Vmax: 2.59 mm/s ( - ) cm) LVOT Vmax: 1.00 m/s (0.7 m/s-1.1 TR PGmax: 27 mmHg ( - ) LVDd (2D): 5.1 cm (3.9 cm-5.3 m/s) syst. PAP: 32 mmHg ( - ) cm) JOHN (VTI): 1.6 cm ( - ) LVDs (2D): 3.5 cm (2.1 cm-4 MV E Vmax: 1.22 m/s ( - ) cm) MV A Vmax: 0.93 m/s ( - ) LVPWd (2D): 0.9 cm ( - ) MV E/A: 1.31 ( - ) LVOTd 1.9 cm 1.9 cm mm MV meanP mmHg ( - ) LVEF (MOD4): 58 % (>=55 %) MVA (Vmax): 1.8 m/s ( - ) EF Range: 60-65 % Continued Measurements: Chambers Valvular Assessment AV/MV Valvular Assessment TV/PV Name Value Name Value Name Value LADs: 3.7 cm MV E/E' Septal: 24.10 CVP (est.): 5 mmHg LADs Lon.6 cm MV E/E' Lateral: 20.20 Patient: ESTIVEN CHOWDHURY Study Date: 12/03/2017 Page 1 of 2 10:12 AM LA Area: 29.0 cm2 MV VTI: 35.80 cm Findings: Left Ventricle: Normal size left ventricle. Mild concentric LV hypertrophy. Normal global systolic LV function. The ejection fraction is estimated to be 60-65 %. No regional wall motion abnormality. Right Ventricle: Normal size right ventricle. Left Atrium: The left atrium is mildly dilated. Right Atrium: The right atrium is normal in size. Mitral Valve: Moderate mitral annular calcification. Mild mitral valve regurgitation is present. Aortic Valve: Cor valve in place. Mild perivalvular leak visualized. AV max PG is 15mmHG. AV mean PG is 9mmHG.. Tricuspid Valve: The tricuspid valve is normal in appearance and function. Mild tricuspid regurgitation is present. The pulmonary artery pressure is normal. Pulmonic Valve: The pulmonic valve is normal in appearance and function. Trivial pulmonic valve regurgitation. Aorta: The aorta is normal. Pericardium: No pericardial effusion. (No Signature Object) Patient: ESTIVEN CHOWDHURY Study Date: 12/03/2017 Page 2 of 2 10:12 AM [id number]
--- NOTE | 2017-12-03 14:52 | ASMTCMCOM ---
CM Note CM Note Notes: 82yr old female admitted for severe aortic stenosis. Had a TAVR procedure. Patient lives at [facility] and plans to return there. Patient has a neice who lives in [place]. 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 Therapies have evaluated: OT/ST no needs, PT=Hm vs HC. She didn't think she would need any HC. Let's see how she does Saturday. CM to follow. Date Signed: 12/03/2017 02:51 PM Electronically Signed By:Kavita Hughes LCSW
[2017-12-03] MEDS ORDERED: BACITRACIN OINTMENT 1 PACKET TP ONE (15:49)
[2017-12-04 05:37] LABS: PLATELET COUNT 141 10^3/uL (150-400)
--- NOTE | 2017-12-04 07:09 | PDCARPN ---
Cardiology Progress Note Chief Complaint: SOB Assessment/Plan: Assessment: s/p TAVR brief run of AF post-op Plan: 12/03/17 06:52 Doing great NSR BP stable Check echo Ambulate OK to transfer Hgb dropped, but pt stable Re-check labs in AM 12/04/17 07:06 Doing well Hgb decreased to 8.5 from 11.2 transfuse 1 u PRBC check labs in AM OOB plan d/c on 12/05 Subjective: doing well Reviewed/Discussed With: multidisciplinary team Time Spent With Patient: 25 min Objective: Vital Signs (8 Hrs) Temp Pulse Resp BP Pulse Ox 12/04/17 02:43 36.3 C 86 17 131/73 H 95 12/03/17 23:33 36.6 C 90 17 134/64 H 94 Intake/Output (24 Hrs) 12/03/17 12/04/17 12/05/17 05:59 05:59 05:59 Intake Total 1380 240 Output Total 400 Balance 980 240 Intake: Oral (ml) 1280 240 IV Infused (ml) 100 Amiodarone HCl 100 ml @ 100 600 mls/hr IV ONCE ONE Rx #:[id number] Output: Urine (ml) 400 Catheter 400 Other: Weight 88.5 kg Output Comment Bedpan catheter placed Number of Voids Bedpan 1 Toilet 2 1 Bladder Scan Volume (ml) Bedpan 560 Post Void Residual Scan Volume (ml) Catheter 30 Result Diagrams: 12/04/17 04:30 12/04/17 04:30 - Physical Exam Constitutional: healthy appearing Eyes: PERRL Ears, Nose, Mouth, Throat: moist mucous membranes Cardiovascular: regular rate and rhythm Peripheral Pulses: 1+: femoral (R), femoral (L) Respiratory: clear to auscultate bilat Gastrointestinal: normoactive bowel sounds Genitourinary: no suprapubic tenderness Skin: no rashes Musculoskeletal: no muscular tenderness Neurologic: AAOx3 Psychiatric: cooperative ICD10 Worksheet Patient Problems: Problems Problem Status Onset Herpes zoster Acute Urinary tract infection Acute
[2017-12-04 08:30] LABS: INR 1.08 (0.83-1.16); PROTIME(PATIENT) 14.2 SEC (12.0-15.0)
[2017-12-04] MEDS: CLOPIDOGREL BISULFATE 75 MG TAB PO SCH (10:02)
[2017-12-04] MEDS: CIPROFLOXACIN 250 MG TAB PO SCH ×2 (10:02→20:39)
[2017-12-04] MEDS: ACETAMINOPHEN 325 MG TAB PO SCH ×4 (10:20→17:43)
[2017-12-05 04:22] LABS: INR 1.03 (0.83-1.16); PROTIME(PATIENT) 13.7 SEC (12.0-15.0)
[2017-12-05] MEDS: ACETAMINOPHEN 325 MG TAB PO SCH (05:36)
--- NOTE | 2017-12-05 06:51 | PDCARPN ---
Cardiology Progress Note Chief Complaint: SOB Assessment/Plan: Assessment: s/p TAVR brief run of AF post-op Plan: 12/03/17 06:52 Doing great NSR BP stable Check echo Ambulate OK to transfer Hgb dropped, but pt stable Re-check labs in AM 12/04/17 07:06 Doing well Hgb decreased to 8.5 from 11.2 transfuse 1 u PRBC check labs in AM OOB plan d/c on 12/0512/05/17 06:49 doing great Hgb stable d/c home today with three day course of cipro Needs plavix prescription Has had reduced O2 at night--night time O2 may help Subjective: doing great Reviewed/Discussed With: multidisciplinary team Time Spent With Patient: 25 min Objective: Vital Signs (8 Hrs) Temp Pulse Resp BP Pulse Ox 12/05/17 06:12 82 L 12/05/17 04:00 36.6 C 76 18 150/73 H 93 12/04/17 23:13 36.8 C 92 16 139/72 H 96 Intake/Output (24 Hrs) 12/04/17 12/05/17 12/06/17 05:59 05:59 05:59 Intake Total 240 1260 Balance 240 1260 Intake: Oral (ml) 240 1260 Other: Intake Quantity Yes Sufficient Number of Voids Toilet 1 2 Result Diagrams: 12/05/17 03:12 12/05/17 03:12 - Physical Exam Constitutional: healthy appearing Eyes: PERRL Ears, Nose, Mouth, Throat: moist mucous membranes Cardiovascular: regular rate and rhythm, systolic murmur Peripheral Pulses: 1+: femoral (R), femoral (L) Respiratory: clear to auscultate bilat Gastrointestinal: normoactive bowel sounds Genitourinary: no suprapubic tenderness Skin: no rashes Musculoskeletal: no muscular tenderness Neurologic: AAOx3 Psychiatric: cooperative Lymph, Heme, Immunologic: no lymphadenopathy ICD10 Worksheet Patient Problems: Problems Problem Status Onset Herpes zoster Acute Urinary tract infection Acute
[2017-12-05 07:16] VITALS: BP 167/67; RESP 16; TEMP 97.7
--- NOTE | 2017-12-05 07:26 | GDS ---
[f rep st] DISCHARGE SUMMARY DISCHARGE DIAGNOSIS: Aortic stenosis. HOSPITAL COURSE: Briefly, this is an 82-year-old female who is deemed to be quite frail, who had sev ere symptomatic and deemed to be a suitable candidate for transfemoral TAVR by [address] surge ons. The patient underwent successful transfemoral TAVR with Medtronic CoreValve Evolut PRO device, 29 mm. The patient post procedure did very well. She did have baseline anemia with a hemoglobin of 11.2, wh ich did drift down to 8.7. She was transfused 1 unit, and her hemoglobin reacted appropriately. She has been ambulating in the halls without problems. Her echocardiogram post procedure shows normal v entricular function with normally functioning TAVR with trivial to mild paravalvular leak. Patient w ill be discharged home this morning with her home medications. She did have evidence of a UTI upon a dmission. Thus, she will continue on Cipro 250 mg p.o. b.i.d. for 3 more days, as well as Plavix 75 p.o. daily. She will follow up with us in the office in 1 week's time. /[id number]/MODL
[2017-12-05] MEDS: CLOPIDOGREL BISULFATE 75 MG TAB PO SCH (08:46)
[2017-12-05] MEDS: CIPROFLOXACIN 250 MG TAB PO SCH (08:46)
--- NOTE | 2017-12-05 09:16 | PDHOMEO2F ---
Home Oxygen Face to Face Home Orders: I certify that a physician or a nurse practitioner or physician's certified ophthalmic assistant has had a yooc-kg-hslk encounter with this patient on the date of this order due to the diagnosis listed, which relates to the primary reason the patient requires home oxygen. Alternative treatments have been tried, or considered, and deemed ineffective. It is anticipated that supplemental oxygen will result in improvement with treatment. Home oxygen qualifying diagnosis: Nocternal Hypoxia, SpO2 on room air (%): 82% Frequency of home oxygen needed: during sleep Home oxygen liters per minute: 2 L/min Home oxygen delivery device: nasal cannula Concentrator: Yes E-tanks for mobility and back up: No I certify that, based on these findings, the home oxygen is medically necessary for this patient for the following length of time. Length of time home oxygen needed: 99 years
[2017-12-05 13:15] VITALS: PULSE 87; O2SAT 94
--- NOTE | 2017-12-05 13:48 | ASMTLACE ---
LACE Length of stay for Answers: 3 days current admission Acuity / Level of Answers: Yes Care: Did the patient have an inpatient admission? Comorbidities - select Answers: Congestive heart failure all that apply Peripheral vascular disease # of Emergency department Answers: 1-2 visits in the last 6 months Score: 10 Date Signed: 12/05/2017 01:48 PM Electronically Signed By:LESLIE Dominguez
--- NOTE | 2017-12-06 09:07 | ASDISCHSUM ---
Discharge Information Plan Status:Home with No Needs Medically Cleared to Leave:12/04/2017 Discharge Date:12/05/2017 12:50 PM CM D/C Disposition: ADT D/C Disposition:Home, Routine, Self-Care Projected Discharge Date:12/05/2017 12:00 AM Transportation at D/C: Discharge Delay Reason: Follow-Up Date:12/05/2017 12:00 AM Discharge Slot: Final Diagnosis: Placement Information Patient Contact Information Contact Name:THANIA Relationship:Melissa Address:[address] Work Phone: City:[place] Alternate Phone: [facility]/Zip Code:[place] [address] Email: Financial Information Financial Class:Medicare Advantage Plans Primary Plan Desc:[facility] ADVANTAGE PLANS Primary Plan Number:[id number] Secondary Plan Desc: Secondary Plan Number: Assessment Information LACE LACE Length of stay for Answers: 3 days current admission Acuity / Level of Answers: Yes Care: Did the patient have an inpatient admission? Comorbidities - select Answers: Congestive heart failure all that apply Peripheral vascular disease # of Emergency department Answers: 1-2 visits in the last 6 months Score: 10 Date Signed: 12/05/2017 01:48 PM Electronically Signed By:LESLIE Dominguez [facility] Progress Note CM Note CM Note Notes: 82yr old female admitted for severe aortic stenosis. Had a TAVR procedure. Patient lives at [facility] and plans to return there. Patient has a neice who lives in [place]. 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 Therapies have evaluated: OT/ST no needs, PT=Hm vs HC. She didn't think she would need any HC. Let's see how she does Saturday. CM to follow. Date Signed: 12/03/2017 02:51 PM Electronically Signed By:Kavita Hughes LCSW Case Management Discharge Plan Note Case Management Discharge Discharge Order Complete? Answers: Yes Patient to Obtain Answers: Independently Medications Transportation Arranged Answers: Family/Friends EMTALA Complete Answers: No Case Management Transport Answers: No Form Complete Faxed Final Orders Answers: No Agency/Facility Transfer Answers: No Report Printed & Faxed to Receiving Agency Family Notified Answers: No Discharge Comments Notes: Pt is being discharged today. CM spoke w/ Petra RN regarding d/c POC. CM met w/ pt for dispo planning. Therapies are recommending HC. Pt reports that she is not interested in having HC at this time. Pt reports that she will attend cardiac rehab. Pt reports that she has a friend that can pick her up. CM available for changes. Plan: Independent Date Signed: 12/05/2017 01:50 PM Electronically Signed By:LESLIE Dominguez Intervention Information
--- NOTE | 2017-12-06 12:26 | PDHOMEO2F ---
Home Oxygen Face to Face Home Orders: I certify that a physician or a nurse practitioner or physician's speech therapy assistant has had a [id number] encounter with this patient on the date of this order due to the diagnosis listed, which relates to the primary reason the patient requires home oxygen. Alternative treatments have been tried, or considered, and deemed ineffective. It is anticipated that supplemental oxygen will result in improvement with treatment. Home oxygen qualifying diagnosis: Hypoxia Home oxygen secondary diagnosis: OPD SpO2 on room air (%): 82% Frequency of home oxygen needed: during sleep Home oxygen liters per minute: 2Liters Home oxygen delivery device: nasal cannula Concentrator: Yes E-tanks for mobility and back up: No I certify that, based on these findings, the home oxygen is medically necessary for this patient for the following length of time. Length of time home oxygen needed: 99 years Home Oxygen Comment: Found to have low oxygen Saturation during the night while sleeping.
== END 2017-12-05 12:50 | disposition home or self-care (01) | DRG 267 ==
LOC: FCATH 06:06 → F2N 09:03 → F2W 12-03 18:42
PROVIDERS: ADMIT Internal Medicine Cardiovascular Disease; ATTEND Internal Medicine Cardiovascular Disease
PROC: 02RF38Z Replacement of Aortic Valve with Zooplastic Tissue, Percutaneous Approach (ICD-10-PCS; principal; 2017-12-02)
PROC: B246ZZ4 Ultrasonography of Right and Left Heart, Transesophageal (ICD-10-PCS; principal; 2017-12-02)
PROC: 30233N1 Transfusion of Nonautologous Red Blood Cells into Peripheral Vein, Percutaneous Approach (ICD-10-PCS; 2017-12-04)
DX: I35.2 Nonrheumatic aortic (valve) stenosis with insufficiency (principal); Z00.6 Encounter for examination for normal comparison and control in clinical research program; N39.0 Urinary tract infection, site not specified; I51.7 Cardiomegaly; D64.9 Anemia, unspecified; E11.9 Type 2 diabetes mellitus without complications; E78.5 Hyperlipidemia, unspecified; E66.9 Obesity, unspecified; I48.91 Unspecified atrial fibrillation
CPT/HCPCS: 92610-GN; 97116-GP; 97161-GP; 97165-GO; 97530-GP; 97535-GO; C1760; C1769; C1894; G8978-GP-CJ; G8979-GP-CI; G8987-GO-CI; G8988-GO-CI; G8989-GO-CI; G8996-GN-CH; G8997-GN-CH; G8998-GN-CH; J0153; J0282; J0690; J1265; J1644; J2001; J2260; J2370; J2704; J2720; J2930; J3010; J3475; J7060; P9016; P9041; Q9967

== ENCOUNTER 2019-03-01 13:29 | Emergency (ER) | payer OTHER | END 2019-03-01 15:09 | disposition home or self-care (01) ==